=== PATIENT | male | born 1985 | race Caucasian/White ===

== ENCOUNTER 2017-05-12 18:31 | Emergency (ER) | payer SELFPAY ==
[~2017-05-12] VITALS: Ht 180.3 cm; Wt 84.0 kg
[2017-05-12] MEDS ORDERED: MAGNESIUM/ALUMINUM HYDROXIDE/SIMETHICONE 30ML UDC PO STA (19:56)
[2017-05-12] MEDS ORDERED: ONDANSETRON 4MG ODT PO STA (19:56)
[2017-05-12] MEDS ORDERED: VISCOUS LIDOCAINE 2% 15 ML UDC PO STA (19:56)
[2017-05-12] MEDS ORDERED: DICYCLOMINE 10 MG/5 ML ORAL SYR PO STA (19:56)
[2017-05-12] MEDS ORDERED: FAMOTIDINE 20MG TABLET PO ONE (20:00)
[2017-05-12 20:24] LABS: CHLORIDE 105 mEq/L (98-107)
[2017-05-12 20:26] LABS: BASOPHILS % 0.9 % (0.0-2.0); EOSINOPHILS % 2.7 % (0.0-5.0); HEMATOCRIT. 38.9 % (42.0-52.0); MEAN CORPUSCULAR HEMOGLOBIN 28.3 pg (28.0-32.0); MEAN CORPUSCULAR VOLUME 84.8 fL (80.0-94.0); MEAN PLATELET VOLUME 8.7 fl (7.4-10.4); MONOCYTES % 9.8 % (2.0-8.0); NEUTROPHILS % 64.6 % (40.0-76.0); PLATELET 202 x1000/uL (130-400); RED BLOOD CELL COUNT 4.59 mill/uL (4.7-6.1); RED CELL DISTRIBUTION WIDTH 13.9 % (11.6-14.6)
[2017-05-12 20:34] LABS: CARBON DIOXIDE 30 mEq/L (21-32)
[2017-05-12 22:10] VITALS: BP 127/79
== END 2017-05-12 23:10 | disposition home or self-care (01) ==
LOC: ER 20:57
DX: K21.9 Gastro-esophageal reflux disease without esophagitis (principal); F17.200 Nicotine dependence, unspecified, uncomplicated
CPT/HCPCS: 36415; 80053; 83690; 85025; 99284; Q0162

== ENCOUNTER 2022-01-13 16:15 | Emergency (ER) | payer SELFPAY ==
[~2022-01-13] VITALS: Ht 180.3 cm; Wt 100.0 kg
[2022-01-13 16:16] VITALS: BP 134/83
[2022-01-13] MEDS ORDERED: MAGNESIUM/ALUMINUM HYDROXIDE/SIMETHICONE 30ML UDC PO STA (17:29)
[2022-01-13] MEDS ORDERED: FAMOTIDINE 20MG TABLET PO ONE (17:30)
[2022-01-13] MEDS ORDERED: IBUPROFEN 400MG TABLET PO ONE (17:30)
[2022-01-13 17:47] LABS: HEMATOCRIT. 41.1 % (42.0-52.0); HEMOGLOBIN. 13.5 g/dL (14.0-18.0); MEAN CORPUSCULAR HEMOGLOBIN 27.4 pg (28.0-32.0); MEAN CORPUSCULAR VOLUME 83.1 fL (80.0-94.0); MEAN PLATELET VOLUME 8.4 fl (7.4-10.4); PLATELET 224 x1000/uL (130-400); RED BLOOD CELL COUNT 4.95 mill/uL (4.7-6.1); RED CELL DISTRIBUTION WIDTH 14.2 % (11.6-14.6)
[2022-01-13 17:52] LABS: CHLORIDE 102 mEq/L (98-107)
[2022-01-13 18:51] LABS: PLATELET ESTIMATE NORMAL
[2022-01-13] MEDS ORDERED: IBUP-2028 MT (19:30)
== END 2022-01-13 20:02 ==
LOC: ER 16:15
DX: R10.12 Left upper quadrant pain (principal); R05.9 Cough, unspecified
CPT/HCPCS: 36415; 71045; 76705; 80053; 85025; 99285